=== PATIENT | female | born 1945 | race Caucasian/White ===

== ENCOUNTER 2016-10-14 10:12 | Emergency (ER) | payer MEDICARE, OTHER ==
--- NOTE | 2016-10-14 10:30 | EDM.PDOC ---
ED HISTORY OF PRESENT ILLNESS - General Chief Complaint: Cardiovascular Problem Stated Complaint: [facility] Time Seen by Provider: 10/14/16 10:24 Source of Information: Reports: Patient History Limitations: Reports: No limitations - History of Present Illness INITIAL COMMENTS - FREE TEXT/NARRATIVE: 71-year-old female arrives in the ED per [facility].she became alarmed this morning when her son checked her blood pressure and identified it to be quite low at home reportedly 79 systolic over 45. Paramedics were summoned and I suspect the blood pressure reading was fictitious. blood pressure is found to be one and 20/78. Blood pressure here is 164 on 87 with a heart rate of 91 per minute. O2 sats are 97% on room air. She has no pain or problems at this time. She reports that she's been told she's had [address] scan [place] but no documented deficits ever occurred. She's been insulin-dependent diabetic for greater than 10 years. Rarely using insulin by insulin pump. Sugars were okay on scene. She did eat breakfast this morning he had oatmeal. She did not take her normal medications due to the low blood pressure recording. I suspect this is fictitious however.she has not been ill with any genitourinary complaints cough or sputum production. Bowels tend to be constipated. No diarrhea. No nausea or vomiting. Denies any headache. She reports that she's getting weaker in fact can't walk anymore gets around only by way of wheelchair. Symptom Onset Date: 10/14/16 Symptom Onset Time: 08:30 Timing/Duration: Reports: Hour(s):, Other (reported blood sugar to be quite low at home and) Severity: moderate (with a systolic of 79.) Quality: Reports: Other (him no pain or discomfort.) Improves with: Reports: None Worsens with: Reports: None Context, General: Denies: Activity, Exercise, Lifting, Sick contact, Trauma, Other Associated Symptoms (General): Reports: weakness (particularly in her lower extremities. ). Denies: no other symptoms, confusion, chest pain, cough, cough w sputum, diaphoresis, fever/chills, headaches, loss of appetite, malaise, nausea/vomiting, rash, seizure, shortness of breath, syncope Treatments PRACTICAL NURSING FACULTY: Reports: Other (see below) (none) - Related Data Allergies/ADRs: Allergies Allergy/AdvReac Type Severity Reaction Status Date / Time No Known Allergies Allergy Verified 10/14/16 10:24 Home Meds: Home Meds Dex Low Dose 81 mg PO DAILY 10/14/16 [History] Calcium Carbonate [Calcium] 1 tab PO DAILY 10/14/16 [History] Cholecalciferol (Vitamin D3) [Vitamin D3] 1 tab PO DAILY 10/14/16 [History] Cyanocobalamin (Vitamin B12) [Vitamin B12] 1 tab PO DAILY 10/14/16 [History] Folic Acid 1 tab PO DAILY 10/14/16 [History] LORazepam [Ativan] 1 tab PO QID PRN 10/14/16 [History] Metoclopramide [Reglan] 1 tab PO QID 10/14/16 [History] Multivit-Min/FA/Lycopene/Lut [Centrum Silver Tablet] 1 tab PO DAILY 10/14/16 [ History] Sertraline [Zoloft] 1.5 tab PO DAILY 10/14/16 [History] Simvastatin [Zocor] 1 tab PO DAILY 10/14/16 [History] Sodium Bicarbonate 1 tab PO BID 10/14/16 [History] Past Medical History Other Genitourinary History: kidney issues pt states that they are only 40% functioning. Neurological History: Reports: CVA (told she has lacunar infarct x3 on CT. Currently she is disabled from ability to walk and get around only by way of wheelchair.). Denies: Speech problems Endocrine/Metabolic History: Reports: Diabetes, type II (has one on insulin for greater than 10 years. Currently being treated with insulin pump.) Other Endocrine/Metabolic History: started insulin pump 1 week ago and is not working well - Past Surgical History Other Cardiovascular Surgeries/Procedures: Pt states that she sometimes has high blood pressure but other times she is hypotensive so she takes BP meds PRN is how it is prescribed. Other GI Surgeries/Procedures: Hepatitis A in high school which has not happened again Social & Family History - Tobacco Use Smoking Status *Q: Never Smoker Second Hand Smoke Exposure: No - Recreational Drug Use Recreational Drug Use: No - Living Situation & Occupation Living situation: Reports: Occupation: retired ED ROS GENERAL - Review of Systems Review Of Systems: See Below Constitutional: Reports: weakness. Denies: fever, chills, malaise, fatigue, night sweats, diaphoresis, decreased appetite, weight loss HEENT: Reports: No symptoms Respiratory: Reports: No Symptoms Cardiovascular: Reports: Blood pressure problem. Denies: No symptoms Endocrine: Reports: fatigue GI/Abdominal: Reports: Constipation : Reports: frequency, incontinence (both urge and stress incontinence.) Musculoskeletal: Reports: back pain, joint pain Skin: Reports: no symptoms Neurological: Reports: No Symptoms Psychiatric: Reports: No symptoms Hematologic/Lymphatic: Reports: no symptoms Immunologic: Reports: no symptoms ED EXAM, GENERAL - Physical Exam Exam: See Below Exam Limited By: No limitations General Appearance: alert, WD/WN, no apparent distress Eye Exam: bilateral eye: normal inspection Ears: normal TMs Throat/Mouth: Normal inspection, Normal lips, Normal oropharynx Head: atraumatic, normocephalic Neck: normal inspection, supple, non-tender, full range of motion. No: lymphadenopathy (L), lymphadenopathy (R) Respiratory/Chest: no respiratory distress, lungs clear, normal breath sounds, no accessory muscle use Cardiovascular: normal peripheral pulses, regular rate, rhythm, no edema, no gallop, no murmur, no rub Peripheral Pulses: 1+: posterior tibial (L), posterior tibial (R), dorsalis pedis (L), dorsalis pedis (R) GI/Abdominal: normal bowel sounds, soft, non tender, no organomegaly, no distention Back Exam: normal inspection, full range of motion. No: CVA tenderness (L), CVA tenderness (R) Extremities: normal inspection, normal range of motion, non-tender, no pedal edema, normal capillary refill Neurological: alert, oriented, CN II-XII intact, normal cognition, normal gait, normal reflexes Psychiatric: normal affect, normal mood Skin Exam: Warm, Dry, Intact, Normal color, No rash EKG INTERPRETATION EKG Date: 10/14/16 Time: 10:45 Rhythm: NSR Rate (beats/min): 90 [place]: LAD-left axis deviation (-35) P-wave: enlarged (consider left atrial hypertrophy) QRS: other (left ventricular protect pattern) ST-T: normal QT: normal Course - Vital Signs Last Recorded V/S: Last Vital Signs Temp 36.9 C 10/14/16 10:19 Pulse 92 10/14/16 10:19 Resp 12 10/14/16 10:19 BP 161/70 H 10/14/16 10:19 Pulse Ox 99 10/14/16 10:19 - Orders/Labs/Meds Orders: Active Orders 24 hr Category Date Time Status Blood Glucose Check, Bedside [RC] ONETIME Care 10/14/16 10:38 Active EKG Documentation Completion [RC] STAT Care 10/14/16 10:38 Active Chest 1V Frontal [CR] Stat Exams 10/14/16 10:38 Taken URINALYSIS W/MICROSCOPIC [UA W/MICROSCOPIC] [URIN] Stat Lab 10/14/16 10:39 Uncollected Labs: Laboratory Tests 10/14/16 10/14/16 Range/Units 10:20 10:20 WBC 6.80 (3.98-10.04) K/mm3 RBC 4.30 (3.98-5.22) M/mm3 Hgb 13.0 (11.2-15.7) gm/L Hct 40.2 (34.1-44.9) % MCV 93.5 (79.4-94.8) fl MCH 30.2 (25.6-32.2) pg MCHC 32.3 (32.2-35.5) g/dl RDW Std Deviation 41.4 (36.4-46.3) fL Plt Count 164 L (182-369) K/mm3 MPV 11.2 (9.4-12.3) fl Neutrophils % (Manual) 70 H (40-60) % Band Neutrophils % 3 (0-10) % Lymphocytes % (Manual) 22 (20-40) % Atypical Lymphs % 0 % Monocytes % (Manual) 4 (2-10) % Eosinophils % (Manual) 1 (0.7-5.8) % Basophils % (Manual) 0 L (0.1-1.2) Platelet Estimate Adequate RBC Morph Comment Normal Sodium 140 (136-145) mEq/L Potassium 4.4 (3.5-5.1) mEq/L Chloride 103 (98-107) mEq/L Carbon Dioxide 29 (21-32) mEq/L Anion Gap 12.4 (5-15) BUN 48 H (7-18) mg/dL Creatinine 1.9 H (0.55-1.02) mg/dL Est Cr Clr Drug Dosing 21.79 mL/min Estimated GFR (MDRD) 26 (>60) mL/min BUN/Creatinine Ratio 25.3 H (14-18) Glucose 261 H (80-115) mg/dL Calcium 9.0 (8.5-10.1) mg/dL Magnesium 1.9 (1.8-2.4) mg/dl Total Bilirubin 0.6 (0.2-1.0) mg/dL AST 27 (15-37) U/L ALT 21 (14-59) U/L Alkaline Phosphatase 72 (46-116) U/L Troponin I < 0.017 (0.00-0.056) ng/mL C-Reactive Protein < 0.2 (<1.0) mg/dL Total Protein 7.2 (6.4-8.2) g/dl Albumin 3.6 (3.4-5.0) g/dl Globulin 3.6 gm/dL Albumin/Globulin Ratio 1.0 (1-2) - Radiology Interpretation Free Text/Narrative:: 71-year-old female presents to the ED per [facility].chief complaint was appreciable hypotension measured by her son at home this morning BP was reported to be sclerosis 79 systolic. Whether this was fictitious or not is suspect. Paramedics arrived and found blood pressure be 128 in the 78 range. In the ED today it's 164/82. She is in sinus rhythm in the nose respiratory distress. Examination is otherwise completely normal. Plan routine labs will be performed including an EKG and one view chest x-ray.blood pressures usually controlled with the Toprol 12.5 mg twice a day. - Re-Assessments/Exams Free Text/Narrative Re-Assessment/Exam: 10/14/16 11:07ECG shows sinus at 90 per minute. There is evidence of left ventricular hypertrophy pattern. Borderline criteria for left atrial hypertrophy. No signs of ischemia. Chest x-ray reveals mildly hyperinflated lung rod. Cardiac silhouette is normal. Visualized portions lung rod appear clear. 10/14/16 11:21chemistry shows a white count of 6.80 with 70% neutrophils and 3% band cells. Hemoglobin is 13.0 hematocrit is 40.2 platelets are 64,000 chemistry shows a sodium of 140 potassium 4.4 chloride 103 carb 29. BUN is mildly elevated at 48 creatinine is elevated at 1.9. EGFR is 26 indicating grade 4 chronic kidney disease. Glucose is 261. Her pressure remained satisfactory one 4777. Heart rate is 86 and sinus.therefore really nothing has changed. I think this blood pressure recording as part of this dictation as. Per son is now here and advised if it happens again to check his own blood pressure dates the machine as it may be the machine not functioning properly. Medications will be continued as previously prescribed. Departure - Departure Time of Disposition: 11:26 Disposition: Home, Self-Care 01 Condition: fair Clinical Impression: Essential hypertension, Insulin dependent diabetes mellitus, Chronic renal insufficiency, stage IV (severe) Forms: ED Department Discharge Additional Instructions: evaluation in the emergency room today in regards to reported low blood sugar identified at home this morning. Blood pressure by paramedics assessment was in the 120/78 range and once you're in the ED it was higher at 164/84. It subsequently come down to close to normal at 147/77. Lab work was done as a precautionary measure to make sure no thing was abnormal and the lab work turned out to be normal other than renal function which he knew was not the best because of diabetes. Blood sugar in the ED was 260 today. No sign of further strokelike illness. Therefore at this time I would not suggest any changes in your medications. Continue medications as previously prescribed. Followup with her personal doctor as planned. - My Orders Last 24 Hours: My Active Orders 10/14/16 10:38 Blood Glucose Check, Bedside [RC] ONETIME EKG Documentation Completion [RC] STAT Chest 1V Frontal [CR] Stat 10/14/16 10:39 URINALYSIS W/MICROSCOPIC [UA W/MICROSCOPIC] [URIN] Stat - Assessment/Plan Last 24 Hours: My Active Orders 10/14/16 10:38 Blood Glucose Check, Bedside [RC] ONETIME EKG Documentation Completion [RC] STAT Chest 1V Frontal [CR] Stat 10/14/16 10:39 URINALYSIS W/MICROSCOPIC [UA W/MICROSCOPIC] [URIN] Stat
--- NOTE | 2016-10-14 15:14 | CR ---
Chest: Portable view of the chest was obtained. Comparison: No previous study. Heart size and mediastinum are within normal limits for portable technique. Lungs are clear with no acute infiltrates. Bony structures are osteopenic. Mild deformity compatible with old healed fracture is seen within the proximal humerus. Impression: 1. Incidental findings. Nothing acute is identified on portable chest x-ray. Diagnostic code #2
[2016-10-14 20:29] VITALS: BP 163/78
== END 2016-10-14 11:40 | disposition home or self-care (01) ==
LOC: JD.ED 10:12
DX: I10 Essential (primary) hypertension (principal); I12.9 Hypertensive chronic kidney disease with stage 1 through stage 4 chronic kidney disease, or unspecified chronic kidney disease; N18.4 Chronic kidney disease, stage 4 (severe); Z79.4 Long term (current) use of insulin; Z79.899 Other long term (current) drug therapy
CPT/HCPCS: 36415; 71010; 71010-26; 80053; 82962; 83735; 84484; 85025; 86140; 93005; 99284; 99285-25

== ENCOUNTER 2016-10-26 17:08 | Emergency (ER) | payer MEDICARE, OTHER ==
[2016-10-26] MEDS ORDERED: Sodium Chloride 0.9% 10 ML Syringe FLUSH PRN (18:25)
--- NOTE | 2016-10-26 21:48 | EDM.PDOC ---
ED HPI DIABETIC EMERGENCY - General Chief Complaint: Diabetic Complaint Stated Complaint: [facility] Time Seen by Provider: 10/26/16 17:33 Source of Information: Reports: Patient, EMS, RN notes reviewed - History of Present Illness INITIAL COMMENTS - FREE TEXT/NARRATIVE: 71 year old female has been brought in by [facility] with concerns of her insulin pump not working properly. Patient is not able to give a real clear hx but it seems that she was trying to reload it with insulin, lost a cover, unable to get it back together and get it programed to work properly. She has given herself dose of 10 units sq this late afternoon prior to calling the ambulance. No fever or chills. No chest pain or difficulty breathing. glucose 133 en route. Most Recent Blood Sugar: 236 - Related Data Allergies/ADRs: Allergies Allergy/AdvReac Type Severity Reaction Status Date / Time No Known Allergies Allergy Verified 10/26/16 17:16 Home Meds: Home Meds Dex Low Dose 81 mg PO DAILY 10/14/16 [History] Calcium Carbonate [Calcium] 1 tab PO DAILY 10/14/16 [History] Cholecalciferol (Vitamin D3) [Vitamin D3] 1 tab PO DAILY 10/14/16 [History] Cyanocobalamin (Vitamin B12) [Vitamin B12] 1 tab PO DAILY 10/14/16 [History] Folic Acid 1 tab PO DAILY 10/14/16 [History] LORazepam [Ativan] 1 tab PO QID PRN 10/14/16 [History] Metoclopramide [Reglan] 1 tab PO TID 10/14/16 [History] Multivit-Min/FA/Lycopene/Lut [Centrum Silver Tablet] 1 tab PO DAILY 10/14/16 [ History] Sertraline [Zoloft] 1.5 tab PO DAILY 10/14/16 [History] Simvastatin [Zocor] 1 tab PO DAILY 10/14/16 [History] Sodium Bicarbonate 1 tab PO BID 10/14/16 [History] Past Medical History HEENT History: Reports: Impaired vision Other HEENT History: Glasses Respiratory History: Reports: Croup Other Respiratory History: Patient states she had croup a lot as a kid Gastrointestinal History: Reports: Other (see below) Other Gastrointestinal History: "slow stomach with chronic n/v" Genitourinary History: Reports: Other (see below) Other Genitourinary History: kidney issues pt states that they are only 40% functioning. Musculoskeletal History: Reports: Osteoporosis Neurological History: Reports: CVA Psychiatric History: Reports: Anxiety Endocrine/Metabolic History: Reports: Diabetes, type II Other Endocrine/Metabolic History: started insulin pump 1 week ago and is not working well - Infectious Disease History Infectious Disease History: Reports: Chicken pox, Measles - Past Surgical History Other Cardiovascular Surgeries/Procedures: Pt states that she sometimes has high blood pressure but other times she is hypotensive so she takes BP meds PRN is how it is prescribed. Other GI Surgeries/Procedures: Hepatitis A in high school which has not happened again Social & Family History - Tobacco Use Smoking Status *Q: Never Smoker Second Hand Smoke Exposure: No - Caffeine Use Caffeine Use: Reports: None - Recreational Drug Use Recreational Drug Use: No - Living Situation & Occupation Living situation: Reports: Occupation: retired ED ROS GENERAL - Review of Systems Review Of Systems: See Below Constitutional: Denies: fever, chills, diaphoresis HEENT: Denies: Sinus problem, Throat pain Respiratory: Denies: Shortness of Breath Cardiovascular: Denies: Chest pain GI/Abdominal: Reports: Nausea. Denies: Abdominal pain, Diarrhea, Vomiting Musculoskeletal: Denies: neck pain, shoulder pain Skin: Reports: no symptoms Neurological: Denies: Weakness, Change in Speech ED EXAM GENERAL NO PERIP PULSE - Physical Exam Exam: See Below General Appearance: alert, anxious, other (patient is mildly confused) Eye Exam: bilateral eye: PERRL Nose: normal inspection Throat/Mouth: Normal inspection Head: atraumatic. No: facial swelling Neck: supple, full range of motion. No: lymphadenopathy (L), lymphadenopathy (R ) Respiratory/Chest: no respiratory distress, lungs clear, normal breath sounds Cardiovascular: regular rate, rhythm GI/Abdominal: soft, non tender. No: guarding Extremities: normal inspection. No: pedal edema, leg pain Neurological: alert, no motor/sensory deficits Skin Exam: Warm, Dry, Normal color Course - Vital Signs Last Recorded V/S: Last Vital Signs Temp 97.4 F 10/26/16 22:22 Pulse 103 H 10/26/16 22:22 Resp 18 10/26/16 22:22 BP 160/57 H 10/26/16 22:22 Pulse Ox 98 10/26/16 22:22 - Orders/Labs/Meds Labs: Laboratory Tests 10/26/16 10/26/16 10/26/16 Range/Units 17:25 17:59 17:59 WBC 8.22 (3.98-10.04) K/mm3 RBC 3.91 L (3.98-5.22) M/mm3 Hgb 11.8 (11.2-15.7) gm/L Hct 35.5 (34.1-44.9) % MCV 90.8 (79.4-94.8) fl MCH 30.2 (25.6-32.2) pg MCHC 33.2 (32.2-35.5) g/dl RDW Std Deviation 39.8 (36.4-46.3) fL Plt Count 164 L (182-369) K/mm3 MPV 10.8 (9.4-12.3) fl Neut % (Auto) 70.4 (34.0-71.1) % Lymph % (Auto) 16.3 L (19.3-51.7) % [place] % (Auto) 11.3 (4.7-12.5) % Eos % (Auto) 1.6 (0.7-5.8) Baso % (Auto) 0.2 (0.1-1.2) % Neut # (Auto) 5.78 (1.56-6.13) K/mm3 Lymph # (Auto) 1.34 (1.18-3.74) K/mm3 [place] # (Auto) 0.93 H (0.24-0.36) K/mm3 Eos # (Auto) 0.13 (0.04-0.36) K/mm3 Baso # (Auto) 0.02 (0.01-0.08) K/mm3 Sodium 141 (136-145) mEq/L Potassium 3.9 (3.5-5.1) mEq/L Chloride 104 (98-107) mEq/L Carbon Dioxide 30 (21-32) mEq/L Anion Gap 10.9 (5-15) BUN 42 H (7-18) mg/dL Creatinine 1.7 H (0.55-1.02) mg/dL Est Cr Clr Drug Dosing 24.35 mL/min Estimated GFR (MDRD) 30 (>60) mL/min BUN/Creatinine Ratio 24.7 H (14-18) Glucose 104 (80-115) mg/dL POC Glucose 72 L (80-115) mg/dL Calcium 9.2 (8.5-10.1) mg/dL Total Bilirubin 0.6 (0.2-1.0) mg/dL AST 20 (15-37) U/L ALT 20 (14-59) U/L Alkaline Phosphatase 75 (46-116) U/L Total Protein 6.8 (6.4-8.2) g/dl Albumin 3.6 (3.4-5.0) g/dl Globulin 3.2 gm/dL Albumin/Globulin Ratio 1.1 (1-2) 10/26/16 10/26/16 Range/Units 19:06 20:35 WBC (3.98-10.04) K/mm3 RBC (3.98-5.22) M/mm3 Hgb (11.2-15.7) gm/L Hct (34.1-44.9) % MCV (79.4-94.8) fl MCH (25.6-32.2) pg MCHC (32.2-35.5) g/dl RDW Std Deviation (36.4-46.3) fL Plt Count (182-369) K/mm3 MPV (9.4-12.3) fl Neut % (Auto) (34.0-71.1) % Lymph % (Auto) (19.3-51.7) % [place] % (Auto) (4.7-12.5) % Eos % (Auto) (0.7-5.8) Baso % (Auto) (0.1-1.2) % Neut # (Auto) (1.56-6.13) K/mm3 Lymph # (Auto) (1.18-3.74) K/mm3 [place] # (Auto) (0.24-0.36) K/mm3 Eos # (Auto) (0.04-0.36) K/mm3 Baso # (Auto) (0.01-0.08) K/mm3 Sodium (136-145) mEq/L Potassium (3.5-5.1) mEq/L Chloride (98-107) mEq/L Carbon Dioxide (21-32) mEq/L Anion Gap (5-15) BUN (7-18) mg/dL Creatinine (0.55-1.02) mg/dL Est Cr Clr Drug Dosing mL/min Estimated GFR (MDRD) (>60) mL/min BUN/Creatinine Ratio (14-18) Glucose (80-115) mg/dL POC Glucose 134 H 223 H (80-115) mg/dL Calcium (8.5-10.1) mg/dL Total Bilirubin (0.2-1.0) mg/dL AST (15-37) U/L ALT (14-59) U/L Alkaline Phosphatase (46-116) U/L Total Protein (6.4-8.2) g/dl Albumin (3.4-5.0) g/dl Globulin gm/dL Albumin/Globulin Ratio (1-2) Meds: Medications Discontinued Medications Generic Name Dose Route Start Last Admin Trade Name Freq PRN Reason Stop Dose Admin Sodium Chloride 10 ml 10/26/16 18:25 10/26/16 18:15 Saline Flush FLUSH 10 ml ASDIRECTED PRN Administration Keep Vein Open - Re-Assessments/Exams Free Text/Narrative Re-Assessment/Exam: 10/26/16 20:33. initial glucose on arrival in the 70's, had been 133 en route. We did have her drink some orange juice and glucose levels have risen as documented. CMP was OK. She continues to show confusion as to how to manage her pump. We have been able to call Enedina Riverafaiza in who is getting that set up for her. Her will come get her and bring her home. Enedina is concerned about her ability to continue to manage her pump. She has had episodes of confusion in the past, has apparent hx of TIA's. Enedina states her son and have not shown reliability to help manage her pump. The pump will be fine now for 3 days. We will have her follow up at the clinic tomorrow, have them be aware of her situation. Enedina will call clinic in AM, see if they can help set up home health, respit care or some type of service to help her with insulin pump, dibetes management and other health care needs as needed. Departure - Departure Time of Disposition: 21:55 Disposition: Home, Self-Care 01 Condition: fair Clinical Impression: Diabetes Qualifiers: Diabetes mellitus type: type 1 Diabetes mellitus complication status: with unspecified complications Qualified Code(s): E10.8 - Type 1 diabetes mellitus with unspecified complications Instructions: Insulin Pumps Referrals: Dionna Willson [facility] [Primary Care Provider] - Forms: ED Department Discharge Additional Instructions: your pump has enough insulin for 3 days. Enedina and Porsche recomend follow up at clinic tomorrow for recheck, call for appt. Have the clinic staff help see if you qualify for home health or other home assistance as needed to help you manage your diabetes and insulin pump at home. Continue to follow up at the clinic as needed, return to ED as needed.
[2016-10-26 22:35] VITALS: BP 160/57
== END 2016-10-26 22:00 | disposition home or self-care (01) ==
LOC: JD.ED 17:08 → SUPCPDRO 17:08 → JD.ED 22:00
DX: E10.8 Type 1 diabetes mellitus with unspecified complications (principal); M81.0 Age-related osteoporosis without current pathological fracture; F41.9 Anxiety disorder, unspecified; Z79.899 Other long term (current) drug therapy
CPT/HCPCS: 36415; 80053; 82962; 85025; 99285; J7050; 99283

== ENCOUNTER 2017-03-14 19:26 | Inpatient (IN) | payer MEDICARE, OTHER ==
[2017-03-14] MEDS ORDERED: Ondansetron 4 MG Tab.DIS PO ONE (20:13)
[2017-03-14] MEDS ORDERED: Sodium Chloride 0.9% 1,000 ML IV SCH (20:30)
[2017-03-14] MEDS ORDERED: Ondansetron 4 MG/2 ML SDV IVPUSH ONE (21:47)
--- NOTE | 2017-03-14 23:06 | EDM.PDOC ---
ED HPI GENERAL MEDICAL PROBLEM - General Chief Complaint: Diabetic Complaint Stated Complaint: [facility] Time Seen by Provider: 03/14/17 19:29 Source of Information: Reports: Patient, Family History Limitations: Reports: No Limitations - History of Present Illness INITIAL COMMENTS - FREE TEXT/NARRATIVE: This is a 72-year-old female. She comes tonight because her blood sugars been elevated over the last 24 hours. Apparently she used to have an insulin pump that she used however in the next couple of weeks she is going to be admitted to a detention and they do not want her to have an insulin pump. Therefore she has stopped the insulin pump and is using IM insulin injections in the morning and during meals. They started out with 15 units of Lantus at 8 AM in the morning and then 3 units of Humalog with every meal. The register which she has has shown that normally in the early mornings her blood sugars are beginning to rise in the 200s and 300s. Around noon or so the blood sugar has been in the 100s. He has been feeling a little nauseated and a little thirsty lately and she has been able to keep down her fluids. Apparently her blood sugar was 490 according to the patient but looking at her register it was only 368. She denies any cough congestion any fever or chills no diarrhea and no vomiting. Abdomen Pain Score (Numeric/FACES): 8 - Related Data Allergies Allergy/AdvReac Type Severity Reaction Status Date / Time No Known Allergies Allergy Verified 10/26/16 17:16 Home Meds: Home Meds Dex Low Dose 81 mg PO DAILY 10/14/16 [History] Calcium Carbonate [Calcium] 600 mg PO DAILY 10/14/16 [History] Cholecalciferol (Vitamin D3) [Vitamin D3] 2,000 unit PO DAILY 10/14/16 [History] Cyanocobalamin (Vitamin B12) [Vitamin B12] 1 tab PO DAILY 10/14/16 [History] Folic Acid 1 tab PO DAILY 10/14/16 [History] LORazepam [Ativan] 0.25 mg PO QID PRN 10/14/16 [History] Metoclopramide [Reglan] 10 mg PO QID 10/14/16 [History] Multivit-Min/FA/Lycopene/Lut [Centrum Silver Tablet] 1 tab PO DAILY 10/14/16 [ History] Sertraline [Zoloft] 150 mg PO DAILY 10/14/16 [History] Sodium Bicarbonate 325 mg PO BID 10/14/16 [History] Omeprazole Magnesium [Prilosec Otc] 20 mg PO DAILY 03/14/17 [History] Ondansetron HCl [Zofran] 4 - 8 mg PO TID PRN 03/14/17 [History] Pramipexole [Mirapex] 0.5 mg PO DAILY 03/14/17 [History] atorvaSTATin [Lipitor] 40 mg PO DAILY 03/14/17 [History] Past Medical History HEENT History: Reports: Impaired Vision Other HEENT History: Glasses Respiratory History: Reports: Croup Other Respiratory History: Patient states she had croup a lot as a kid Gastrointestinal History: Reports: Other (See Below) Other Gastrointestinal History: "slow stomach with chronic n/v" Genitourinary History: Reports: Other (See Below) Other Genitourinary History: kidney issues pt states that they are only 40% functioning. Musculoskeletal History: Reports: Osteoporosis Neurological History: Reports: CVA Psychiatric History: Reports: Anxiety Endocrine/Metabolic History: Reports: Diabetes, Type II Other Endocrine/Metabolic History: started insulin pump 1 week ago and is not working well - Infectious Disease History Infectious Disease History: Reports: Chicken Pox, Measles - Past Surgical History Cardiovascular Surgical History: Reports: Other (See Below) Social & Family History - Tobacco Use Smoking Status *Q: Never Smoker Second Hand Smoke Exposure: No - Caffeine Use Caffeine Use: Reports: Coffee, Soda, Tea - Recreational Drug Use Recreational Drug Use: No - Living Situation & Occupation Living situation: Reports: Occupation: Retired ED ROS GENERAL - Review of Systems Review Of Systems: See Below Constitutional: Reports: Malaise, Weakness. Denies: Fever, Chills HEENT: Reports: No Symptoms Respiratory: Reports: No Symptoms Cardiovascular: Reports: No Symptoms Endocrine: Reports: High Glucose GI/Abdominal: Reports: Nausea. Denies: Abdominal Pain, Diarrhea, Vomiting : Reports: No Symptoms Musculoskeletal: Reports: No Symptoms Skin: Reports: No Symptoms Neurological: Reports: Weakness Psychiatric: Reports: No Symptoms Hematologic/Lymphatic: Reports: No Symptoms ED EXAM GENERAL NO PERIP PULSE - Physical Exam Exam: See Below Exam Limited By: No Limitations General Appearance: Alert, WD/WN, No Apparent Distress Eye Exam: Bilateral Eye: Normal Inspection Ears: Normal External Exam, Normal Canal, Normal TMs Nose: Normal Inspection Throat/Mouth: Normal Inspection, Normal Lips, Normal Voice, No Airway Compromise Head: Normocephalic Neck: Supple Respiratory/Chest: No Respiratory Distress, Lungs Clear, Normal Breath Sounds Cardiovascular: Regular Rate, Rhythm, No Murmur GI/Abdominal: Soft, Non-Tender Back Exam: Decreased Range of Motion Extremities: Normal Range of Motion Neurological: Alert, Oriented Psychiatric: Normal Affect, Normal Mood Skin Exam: Warm, Dry Course - Vital Signs Last Recorded V/S: Last Vital Signs Temp 97.2 F 03/14/17 19:35 Pulse 106 H 03/14/17 19:35 Resp 20 03/14/17 19:35 BP 158/64 H 03/14/17 19:35 Pulse Ox 93 L 03/14/17 19:35 - Orders/Labs/Meds Orders: Active Orders 24 hr Category Date Time Status Blood Glucose Check, Bedside [RC] ONETIME Care 03/14/17 19:59 Active Chest 2V [CR] Stat Exams 03/14/17 23:08 Ordered CULTURE URINE [RM] Stat Lab 03/14/17 23:09 Uncollected LACTIC ACID [CHEM] Stat Lab 03/14/17 23:17 Ordered Sodium Chloride 0.9% [Normal Saline] 1,000 ml Med 03/14/17 20:30 Active IV ASDIRECTED Medication Orders Sodium Chloride (Normal Saline) 1,000 mls @ 250 mls/hr IV ASDIRECTED ADEEL Last Admin: 03/14/17 20:31 Dose: 250 mls/hr Labs: Laboratory Tests 03/14/17 03/14/17 03/14/17 Range/Units 20:01 20:08 20:37 WBC 18.56 H (3.98-10.04) K/mm3 RBC 3.54 L (3.98-5.22) M/mm3 Hgb 11.1 L (11.2-15.7) gm/L Hct 34.0 L (34.1-44.9) % MCV 96.0 H (79.4-94.8) fl MCH 31.4 (25.6-32.2) pg MCHC 32.6 (32.2-35.5) g/dl RDW Std Deviation 42.7 (36.4-46.3) fL Plt Count 179 L (182-369) K/mm3 MPV 11.7 (9.4-12.3) fl Neut % (Auto) 87.2 H (34.0-71.1) % Lymph % (Auto) 4.6 L (19.3-51.7) % [place] % (Auto) 7.9 (4.7-12.5) % Eos % (Auto) 0 L (0.7-5.8) Baso % (Auto) 0.1 (0.1-1.2) % Neut # (Auto) 16.20 H (1.56-6.13) K/mm3 Lymph # (Auto) 0.85 L (1.18-3.74) K/mm3 [place] # (Auto) 1.46 H (0.24-0.36) K/mm3 Eos # (Auto) 0.00 L (0.04-0.36) K/mm3 Baso # (Auto) 0.02 (0.01-0.08) K/mm3 Manual Slide Review Normal smear Sodium (136-145) mEq/L Potassium (3.5-5.1) mEq/L Chloride (98-107) mEq/L Carbon Dioxide (21-32) mEq/L Anion Gap (5-15) BUN (7-18) mg/dL Creatinine (0.55-1.02) mg/dL Est Cr Clr Drug Dosing mL/min Estimated GFR (MDRD) (>60) mL/min BUN/Creatinine Ratio (14-18) Glucose (83-115) mg/dL POC Glucose 257 H (83-110) mg/dL Calcium (8.5-10.1) mg/dL Total Bilirubin (0.2-1.0) mg/dL AST (15-37) U/L ALT (14-59) U/L Alkaline Phosphatase (46-116) U/L Total Protein (6.4-8.2) g/dl Albumin (3.4-5.0) g/dl Globulin gm/dL Albumin/Globulin Ratio (1-2) Urine Color Yellow (Yellow) Urine Appearance Slt cloudy H (Clear) Urine pH 5.5 (5.0-8.0) Ur Specific [place] 1.020 (1.005-1.030) Urine Protein 1+ H (Negative) Urine Glucose (UA) 2+ H (Negative) Urine Ketones 1+ H (Negative) Urine Occult Blood Trace-lysed H (Negative) Urine Nitrite Negative (Negative) Urine Bilirubin 1+ H (Negative) Urine Urobilinogen 0.2 (0.2-1.0) Ur Leukocyte Esterase 1+ H (Negative) Urine RBC 5-10 H (0-5) /hpf Urine WBC 20-30 H (0-5) /hpf Ur Epithelial Cells 5-10 H (0-5) /hpf Urine Bacteria Moderate H (FEW) /hpf Urine Mucus Few (FEW) /hpf 03/14/17 03/14/17 Range/Units 20:37 21:45 WBC (3.98-10.04) K/mm3 RBC (3.98-5.22) M/mm3 Hgb (11.2-15.7) gm/L Hct (34.1-44.9) % MCV (79.4-94.8) fl MCH (25.6-32.2) pg MCHC (32.2-35.5) g/dl RDW Std Deviation (36.4-46.3) fL Plt Count (182-369) K/mm3 MPV (9.4-12.3) fl Neut % (Auto) (34.0-71.1) % Lymph % (Auto) (19.3-51.7) % [place] % (Auto) (4.7-12.5) % Eos % (Auto) (0.7-5.8) Baso % (Auto) (0.1-1.2) % Neut # (Auto) (1.56-6.13) K/mm3 Lymph # (Auto) (1.18-3.74) K/mm3 [place] # (Auto) (0.24-0.36) K/mm3 Eos # (Auto) (0.04-0.36) K/mm3 Baso # (Auto) (0.01-0.08) K/mm3 Manual Slide Review Sodium 143 (136-145) mEq/L Potassium 4.0 (3.5-5.1) mEq/L Chloride 102 (98-107) mEq/L Carbon Dioxide 29 (21-32) mEq/L Anion Gap 16.0 H (5-15) BUN 54 H (7-18) mg/dL Creatinine 2.3 H (0.55-1.02) mg/dL Est Cr Clr Drug Dosing 17.74 mL/min Estimated GFR (MDRD) 21 (>60) mL/min BUN/Creatinine Ratio 23.5 H (14-18) Glucose 300 H (83-115) mg/dL POC Glucose 262 H (83-110) mg/dL Calcium 9.8 (8.5-10.1) mg/dL Total Bilirubin 0.7 (0.2-1.0) mg/dL AST 28 (15-37) U/L ALT 30 (14-59) U/L Alkaline Phosphatase 77 (46-116) U/L Total Protein 6.9 (6.4-8.2) g/dl Albumin 3.7 (3.4-5.0) g/dl Globulin 3.2 gm/dL Albumin/Globulin Ratio 1.2 (1-2) Urine Color (Yellow) Urine Appearance (Clear) Urine pH (5.0-8.0) Ur Specific [place] (1.005-1.030) Urine Protein (Negative) Urine Glucose (UA) (Negative) Urine Ketones (Negative) Urine Occult Blood (Negative) Urine Nitrite (Negative) Urine Bilirubin (Negative) Urine Urobilinogen (0.2-1.0) Ur Leukocyte Esterase (Negative) Urine RBC (0-5) /hpf Urine WBC (0-5) /hpf Ur Epithelial Cells (0-5) /hpf Urine Bacteria (FEW) /hpf Urine Mucus (FEW) /hpf Meds: Medications Generic Name Dose Route Start Last Admin Trade Name Freq PRN Reason Stop Dose Admin Sodium Chloride 1,000 mls @ 250 mls/hr 03/14/17 20:30 03/14/17 20:31 Normal Saline IV 250 mls/hr ASDIRECTED ADEEL Administration Discontinued Medications Generic Name Dose Route Start Last Admin Trade Name Freq PRN Reason Stop Dose Admin Ondansetron HCl 4 mg 03/14/17 20:13 03/14/17 20:17 Zofran Odt PO 03/14/17 20:14 4 mg ONETIME ONE Administration Ondansetron HCl 4 mg 03/14/17 21:47 03/14/17 22:06 Zofran IVPUSH 03/14/17 21:48 4 mg ONETIME ONE Administration - Radiology Interpretation Free Text/Narrative:: Chest x-ray did not show any acute infiltrates - Re-Assessments/Exams Free Text/Narrative Re-Assessment/Exam: 03/14/17 23:34 Spoke to the family that arrived regarding the patient's status. She appears to have a urinary tract infection and we did a urine culture and she has a white count of 18.5 noted. She has persistent nausea but she has a gastroparesis she is also got renal insufficiency that is chronic and her blood sugars are more elevated than normal. I did speak to Dr. Rodriguez regarding this and we'll put her in the hospital for adjustment of her insulin needs as well as treating her UTI. Departure - Departure Time of Disposition: 23:36 Disposition: Admitted As Inpatient 67 Condition: Fair Clinical Impression: Nausea, Gastroparesis, Insulin dependent diabetes mellitus, Hyperglycemia Urinary tract infection Qualifiers: Urinary tract infection type: acute cystitis Hematuria presence: without hematuria Qualified Code(s): N30.00 - Acute cystitis without hematuria Leukocytosis Qualifiers: Leukocytosis type: other Qualified Code(s): D72.828 - Other elevated white blood cell count Chronic renal insufficiency Qualifiers: Chronic kidney disease stage: unspecified stage Qualified Code(s): N18.9 - Chronic kidney disease, unspecified - Discharge Information Additional Instructions: Dr. Rodriguez accepts the patient for admission for further evaluation and treatment ED Communication - ED Communication Date/Time Date: 03/14/17 Time Called: 23:38 - Discussed Case With (1) Discussed Case With (1): Admitting Provider Person/s Notified (1): Lisa Rodriguez (Will admit the patient) - My Orders Last 24 Hours: My Active Orders 03/14/17 19:59 Blood Glucose Check, Bedside [RC] ONETIME 03/14/17 20:30 Sodium Chloride 0.9% [Normal Saline] 1,000 ml IV ASDIRECTED 03/14/17 23:08 Chest 2V [CR] Stat 03/14/17 23:09 CULTURE URINE [RM] Stat 03/14/17 23:17 LACTIC ACID [CHEM] Stat - Assessment/Plan Last 24 Hours: My Active Orders 03/14/17 19:59 Blood Glucose Check, Bedside [RC] ONETIME 03/14/17 20:30 Sodium Chloride 0.9% [Normal Saline] 1,000 ml IV ASDIRECTED 03/14/17 23:08 Chest 2V [CR] Stat 03/14/17 23:09 CULTURE URINE [RM] Stat 03/14/17 23:17 LACTIC ACID [CHEM] Stat
[2017-03-14] MEDS ORDERED: cefTRIAXone 1 GM in Sodium Chloride 0.9% 100 ML IV ONE (23:35)
[2017-03-15] MEDS ORDERED: Sodium Chloride 0.9% 1,000 ML IV SCH (00:45)
[2017-03-15] MEDS ORDERED: Ondansetron 4 MG/2 ML SDV IVPUSH PRN (08:42)
--- NOTE | 2017-03-15 09:48 | PCM.HP ---
H&P History of Present Illness - General Date of Service: 03/15/17 Admit Problem/Dx: Admission Diagnosis/Problem Admission Diagnosis/Problem Urinary tract infection Source of Information: Patient, Provider History Limitations: Reports: No Limitations - History of Present Illness Initial Comments - Free Text/Narative: 72 year old female with DM type II formerly on a insulin pump, presents with malaise, weakness. Her BS were greater than 300. She has had increased thirst. Additionally nausea as well as vomiting. Denies fever or chills. After admission to [facility] telemetry has also complained of abdominal pain. Reports frequent episodes of vomiting, the nursing staff witnessed coffee ground emesis this am. She denies a change in habits but by lab work, has a UTI. Rocephin was given in the ED. She has been admitted for symptomatic hyperglycemia and a UTI. Onset of Symptoms: Reports: Unknown/Unsure Duration of Symptoms: Reports: Day(s):, Getting Worse Location: Reports: Abdomen, Generalized Severity: Moderate Improves with: Reports: Medication Worsens with: Reports: None Associated Symptoms: Reports: Malaise, Nausea/Vomiting Abdomen Pain Score (Numeric/FACES): 8 - Related Data Allergies/Adverse Reactions: Allergies Allergy/AdvReac Type Severity Reaction Status Date / Time No Known Allergies Allergy Verified 10/26/16 17:16 Home Medications: Home Meds Calcium Carbonate [Calcium] 600 mg PO DAILY 10/14/16 [History] Cholecalciferol (Vitamin D3) [Vitamin D3] 2,000 unit PO DAILY 10/14/16 [History] Cyanocobalamin (Vitamin B12) [Vitamin B12] 1 tab PO DAILY 10/14/16 [History] Folic Acid 1 mg PO DAILY 10/14/16 [History] LORazepam [Ativan] 0.25 mg PO QID PRN 10/14/16 [History] Metoclopramide [Reglan] 10 mg PO BTHMEALBED 10/14/16 [History] Multivit-Min/FA/Lycopene/Lut [Centrum Silver Tablet] 1 tab PO DAILY 10/14/16 [ History] Sertraline [Zoloft] 150 mg PO DAILY 10/14/16 [History] Sodium Bicarbonate 325 mg PO BID 10/14/16 [History] Insulin Glarg,Human.Rec.Analog [LantUS] 15 unit SUBCUT ACBREAKFAST 03/14/17 [ History] Insulin Lispro [Humalog] 3 units SQ TIDMEALS 03/14/17 [History] Omeprazole Magnesium [Prilosec Otc] 20 mg PO DAILY 03/14/17 [History] Ondansetron HCl [Zofran] 4 - 8 mg PO TID PRN 03/14/17 [History] Pramipexole [Mirapex] 0.5 - 1 mg PO DAILY 03/14/17 [History] atorvaSTATin [Lipitor] 40 mg PO DAILY 03/14/17 [History] Aspirin [Ecotrin] 325 mg PO DAILY 03/15/17 [History] Past Medical History HEENT History: Reports: Impaired Vision Other HEENT History: Glasses Cardiovascular History: Reports: Hypertension, [place] Other Cardiovascular History: pb is elevated at times Respiratory History: Reports: Croup Other Respiratory History: Patient states she had croup a lot as a kid Gastrointestinal History: Reports: Chronic Diarrhea, Other (See Below) Other Gastrointestinal History: "slow stomach with chronic n/v" Genitourinary History: Reports: Chronic Renal Insuffiency, Renal Disease, Other (See Below) Other Genitourinary History: kidney issues pt states that they are only 40% functioning. 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: Musculoskeletal History: Reports: Osteoporosis Neurological History: Reports: CVA Psychiatric History: Reports: Anxiety Endocrine/Metabolic History: Reports: Diabetes, Type II Other Endocrine/Metabolic History: started insulin pump 1 week ago and is not working well has had hypo and hyper glycemia in past - Infectious Disease History Infectious Disease History: Reports: Chicken Pox, Measles - Past Surgical History Respiratory Surgical History: Reports: None Female Surgical History: Reports: None Social & Family History - Family History Family Medical History: Noncontributory - Tobacco Use Smoking Status *Q: Never Smoker Second Hand Smoke Exposure: No - Caffeine Use Caffeine Use: Reports: None - Recreational Drug Use Recreational Drug Use: No - Living Situation & Occupation Living situation: Reports: Occupation: Retired H&P Review of Systems - Review of Systems: Review Of Systems: See Below General: Reports: Malaise, Weakness HEENT: Reports: Sore Throat Pulmonary: Reports: No Symptoms Cardiovascular: Reports: No Symptoms Gastrointestinal: Reports: Abdominal Pain, Nausea, Vomiting Genitourinary: Reports: No Symptoms Musculoskeletal: Reports: No Symptoms Skin: Reports: No Symptoms Psychiatric: Reports: No Symptoms Neurological: Reports: No Symptoms Hematologic/Lymphatic: Reports: No Symptoms Immunologic: Reports: No Symptoms Exam - Exam Exam: See Below - Vital Signs Vital Signs: Last Vital Signs Temp 37.0 C 03/15/17 09:00 Pulse 106 H 03/15/17 09:00 Resp 14 03/15/17 09:00 BP 170/95 H 03/15/17 09:00 Pulse Ox 94 L 03/15/17 09:00 Weight: 51.001 kg - Exam Quality Assessment: DVT Prophylaxis General: Alert, Oriented, Mild Distress HEENT: Conjunctiva Clear, EOMI, Nares Patent, Normal Nasal Septum, Pupils Equal , Pupils Reactive Neck: Supple, Trachea Midline Lungs: Normal Respiratory Effort Cardiovascular: Regular Rate, Tachycardia GI/Abdominal Exam: Normal Bowel Sounds, Soft, No Organomegaly, No Distention, Tender (lower quad) (Female) Exam: Deferred Rectal (Female) Exam: Deferred Extremities: Normal Inspection Skin: Warm Neurological: Cranial Nerves Intact Neuro Extensive - Mental Status: Alert, Oriented x3, Normal Mood/Affect Neuro Extensive - Motor, Sensory, Reflexes: CN II-XII Intact Psychiatric: Alert, Anxious - Patient Data Lab Results Last 24 hrs: Laboratory Results - last 24 hr 03/14/17 03/14/17 03/15/17 Range/Units 23:38 23:43 05:50 WBC 15.05 H (3.98-10.04) K/mm3 RBC 3.40 L (3.98-5.22) M/mm3 Hgb 10.7 L (11.2-15.7) gm/L Hct 33.2 L (34.1-44.9) % MCV 97.6 H (79.4-94.8) fl MCH 31.5 (25.6-32.2) pg MCHC 32.2 (32.2-35.5) g/dl RDW Std Deviation 43.7 (36.4-46.3) fL Plt Count 168 L (182-369) K/mm3 MPV 11.6 (9.4-12.3) fl Sodium (136-145) mEq/L Potassium (3.5-5.1) mEq/L Chloride (98-107) mEq/L Carbon Dioxide (21-32) mEq/L Anion Gap (5-15) BUN (7-18) mg/dL Creatinine (0.55-1.02) mg/dL Est Cr Clr Drug Dosing mL/min Estimated GFR (MDRD) (>60) mL/min BUN/Creatinine Ratio (14-18) Glucose (83-115) mg/dL POC Glucose 282 H (83-110) mg/dL Lactic Acid 0.9 (0.4-2.0) mmol/L Calcium (8.5-10.1) mg/dL 03/15/17 03/15/17 Range/Units 05:50 07:00 WBC (3.98-10.04) K/mm3 RBC (3.98-5.22) M/mm3 Hgb (11.2-15.7) gm/L Hct (34.1-44.9) % MCV (79.4-94.8) fl MCH (25.6-32.2) pg MCHC (32.2-35.5) g/dl RDW Std Deviation (36.4-46.3) fL Plt Count (182-369) K/mm3 MPV (9.4-12.3) fl Sodium 143 (136-145) mEq/L Potassium 4.0 (3.5-5.1) mEq/L Chloride 106 (98-107) mEq/L Carbon Dioxide 26 (21-32) mEq/L Anion Gap 15.0 (5-15) BUN 47 H (7-18) mg/dL Creatinine 2.0 H (0.55-1.02) mg/dL Est Cr Clr Drug Dosing 20.41 mL/min Estimated GFR (MDRD) 25 (>60) mL/min BUN/Creatinine Ratio 23.5 H (14-18) Glucose 311 H (83-115) mg/dL POC Glucose 297 H (83-110) mg/dL Lactic Acid (0.4-2.0) mmol/L Calcium 8.7 (8.5-10.1) mg/dL Result Diagrams: 03/15/17 05:50 03/15/17 05:50 *Q Meaningful Use (ADM) - VTE *Q VTE Criteria *Q: - Stroke *Q Stroke Criteria *Q: - AMI *Q AMI Criteria *Q: Problem List Initiated/Reviewed/Updated: Yes Orders Last 24hrs: Active Orders 24 hr Category Date Time Status Admission Status [Patient Status] [ADT] Routine ADT 03/14/17 23:58 Active Blood Glucose Check, Bedside [RC] QIDACANDBED Care 03/15/17 00:31 Active Up With Assistance [RC] ASDIRECTED Care 03/15/17 00:37 Active [employer] Diet [DIET] Diet 03/15/17 Breakfast Active NPO [Nothing Per Oral Diet] [DIET] Diet 03/15/17 Lunch Active Ondansetron [Zofran ODT] Med 03/15/17 00:31 Active 4 mg PO Q6H PRN Ondansetron [Zofran] Med 03/15/17 08:42 Active 4 mg IVPUSH Q4H PRN Pneumococcal Polyvalent-23 Vac [Pneumovax 23] Med 03/16/17 09:00 Once 0.5 ml SUBCUT .ONCE ONE Sodium Chloride 0.9% [Normal Saline] 1,000 ml Med 03/15/17 00:45 Active IV ASDIRECTED cefTRIAXone [Rocephin] 1 gm Med 03/15/17 23:00 Active Sodium Chloride 0.9% [Normal Saline] 100 ml IV Q24H Resuscitation Status Routine Resus Stat 03/15/17 00:31 Ordered Medication Orders Sodium Chloride (Normal Saline) 1,000 mls @ 125 mls/hr IV ASDIRECTED ADEEL Last Admin: 03/15/17 02:44 Dose: 125 mls/hr Ceftriaxone Sodium 1 gm/ (Sodium Chloride) 100 mls @ 200 mls/hr IV Q24H [facility] Ondansetron HCl (Zofran Odt) 4 mg PO Q6H PRN PRN Reason: Nausea/Vomiting Ondansetron HCl (Zofran) 4 mg IVPUSH Q4H PRN PRN Reason: Nausea/Vomiting Last Admin: 03/15/17 08:49 Dose: 4 mg Pneumococcal Polyvalent Vaccine (Pneumovax 23) 0.5 ml SUBCUT .ONCE ONE Stop: 03/16/17 09:01 Assessment/Plan Comment:: Impression: DM type II---> Hyperglycemia with frequent adjustment of insulin. Patient reports running out of insulin as well. Former insulin pump patient AUTI-->first dose of Rocephin in the ED Abdominal pain, unspecified; coffee ground emesis Chronic Gastroparesis with N/V CVA Anxiety Plan: IVF NPO-->advance to clear liquids Low dose SS Novolog Rocephin QD Protonix 40 mg IV BID Gen surg re: EGD Check H pylori Home meds Daily Labs AXR, 2 view CM/PT/OT DVT/GI prophylaxis
[2017-03-15] MEDS ORDERED: 50% Dextrose in Water 50 ML Syringe IVPUSH PRN (09:57)
[2017-03-15] MEDS: Pantoprazole 40 MG Vial IVPUSH SCH ×2 (10:17→21:46)
[2017-03-15] MEDS: Insulin Aspart 100 Units/ML 3 ML Pen SUBCUT SCH ×3 (12:10→21:41)
[2017-03-15] MEDS: Metoclopramide 10 MG/2 ML SDV IVPUSH PRN ×2 (12:11→22:05)
[2017-03-15] MEDS: Sodium Chloride 0.45% 1,000 ML IV SCH ×2 (12:13→21:37)
[2017-03-15] MEDS ORDERED: hydrALAZINE 20 MG/ML SDV IVPUSH PRN (12:19)
[2017-03-15] MEDS ORDERED: LORazepam 2 MG/ML MDV IVPUSH ONE (12:22)
[2017-03-15] MEDS ORDERED: HYDROmorphone 1 MG/ML Syringe IVPUSH ONE (12:22)
[2017-03-15] MEDS ORDERED: Sodium Chloride 0.45% 1,000 ML IV SCH (12:30)
--- NOTE | 2017-03-15 13:20 | CR ---
Abdomen: Supine and upright views of the abdomen were obtained. Comparison: No previous study. Large calcification which is felt compatible with gallstone is seen within the right upper abdomen measuring approximately 1.5 cm. Several air-fluid levels are seen within small bowel which can be seen normally. No small bowel dilatation is seen. Mild vascular calcification is noted. No free air is seen. Bony structures are within normal limits for the patient's age. Impression: 1. Findings which are felt to be incidental as described above. Diagnostic code #2
--- NOTE | 2017-03-15 13:58 | CR ---
Chest: Two views of the chest were obtained. Comparison: Previous chest x-ray of 10/14/16. Heart size appears within normal limits. Tortuous thoracic aorta is seen. Lungs are clear. Mild scoliosis is noted within the spine. Heart size is normal. Lungs are clear. Upper mediastinum is normal. Mild scoliosis is present within the spine. Slight deformity from old healed fracture is noted within the proximal humerus. Impression: 1. Incidental findings. Nothing acute is identified on two-view chest x-ray. Diagnostic code #2
[2017-03-15] MEDS ORDERED: HYDROmorphone 1 MG/ML Syringe IVPUSH PRN (14:26)
[2017-03-15] MEDS ORDERED: Metoprolol Tartrate 5 MG/5 ML SDV IVPUSH PRN (18:12)
[2017-03-15] MEDS ORDERED: Pramipexole 0.5 MG Tab PO SCH ×2 (19:30→21:15)
[2017-03-15] MEDS ORDERED: cefTRIAXone 1 GM in Sodium Chloride 0.9% 100 ML IV SCH ×2 (21:00→23:00)
[2017-03-15] MEDS: Sodium Bicarbonate 650 MG Tab PO SCH (21:38)
[2017-03-15] MEDS: Pramipexole 0.25 MG Tab PO SCH (21:40)
[2017-03-15] MEDS: LORazepam 0.5 MG Tab PO PRN (23:30)
[2017-03-16] MEDS: Metoclopramide 10 MG/2 ML SDV IVPUSH PRN (04:21)
[2017-03-16] MEDS: LORazepam 0.5 MG Tab PO PRN (04:29)
[2017-03-16] MEDS: Sodium Chloride 0.45% 1,000 ML IV SCH ×3 (06:45→21:09)
[2017-03-16] MEDS: Insulin Aspart 100 Units/ML 3 ML Pen SUBCUT SCH ×4 (06:47→21:14)
[2017-03-16] MEDS: Saccharomyces Boulardii (Probiotic) 250 MG Cap PO SCH ×2 (08:46→20:56)
[2017-03-16] MEDS: Sertraline 50 MG Tab PO SCH (08:47)
[2017-03-16] MEDS: Pantoprazole 40 MG Tab.CR PO SCH ×2 (08:47→20:57)
[2017-03-16] MEDS: Rosuvastatin 10 MG Tab PO SCH (08:47)
[2017-03-16] MEDS: Sodium Bicarbonate 650 MG Tab PO SCH ×2 (08:48→20:56)
[2017-03-16] MEDS ORDERED: Diphtheria,Pertussis(Acell),Tetanus Vaccine 0.5 ML SDV IM ONE (09:00)
[2017-03-16] MEDS ORDERED: Pramipexole 0.25 MG Tab PO SCH (09:00)
[2017-03-16] MEDS ORDERED: Pneumococcal Polyvalent-23 Vaccine 0.5 ML SDV SUBCUT ONE (09:00)
[2017-03-16] MEDS ORDERED: Enoxaparin 30 MG/0.3 ML Syringe SUBCUT SCH (09:00)
[2017-03-16] MEDS: Ondansetron 4 MG Tab.DIS PO PRN ×2 (09:09→15:28)
[2017-03-16] MEDS: Pramipexole 0.25 MG Tab PO SCH (09:09)
--- NOTE | 2017-03-16 10:32 | US ---
Abdominal ultrasound: Multiple real-time images were obtained transabdominally. Comparison: No previous study. Liver shows no focal parenchymal abnormality. Aorta shows some atherosclerotic change without aneurysmal dilatation. Gallbladder shows a large gallstone measuring 2.1 cm. Other smaller gallstones are seen. Gallbladder wall is slightly prominent in thickness. No biliary duct dilatation is seen. Slightly prominent renal pyramids are seen within both kidneys which are incidental. 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 Kidneys otherwise appear within normal limits. Right kidney measures 9.9 cm in length. Left kidney measures 10.6 cm in length. Spleen size is normal. Pancreas is incompletely seen. Visualized portions of the pancreas are within normal limits. Inferior vena cava is patent. Impression: 1. Gallstones with mild gallbladder wall thickening. No biliary duct dilatation is seen. 2. Other incidental findings. Diagnostic code #3
--- NOTE | 2017-03-16 11:45 | PCM.PN ---
- General Info Date of Service: 03/16/17 Functional Status: Reports: Pain Controlled (After Dilaudid was administered) - Review of Systems General: Reports: No Symptoms Pulmonary: Reports: Cough. Denies: Shortness of Breath Cardiovascular: Reports: No Symptoms. Denies: Chest Pain Gastrointestinal: Reports: Nausea. Denies: Vomiting Skin: Reports: No Symptoms Systems Review Comment:: Selena states she has a cough this morning and nausea. She has not vomited this morning. Abdominal pain kept her awake last night. She said her abdominal pain was controlled with the Dilaudid this morning. Her son says her buyer broker is Dr. Walker. - Patient Data Vitals - Most Recent: Last Vital Signs Temp 98.8 F 03/16/17 09:38 Pulse 96 03/16/17 09:51 Resp 12 03/16/17 09:38 BP 130/60 03/16/17 09:51 Pulse Ox 71 L 03/16/17 09:38 Weight - Most Recent: 118 lb I&O - Last 24 Hours: Intake & Output 03/15/17 03/16/17 03/16/17 22:59 06:59 14:59 Intake Total 2619 1652 Output Total 1300 900 Balance 1319 752 Lab Results Last 24 Hours: Laboratory Results - last 24 hr 03/15/17 03/15/17 03/15/17 Range/Units 05:50 11:45 12:28 WBC (3.98-10.04) K/mm3 RBC (3.98-5.22) M/mm3 Hgb (11.2-15.7) gm/L Hct (34.1-44.9) % MCV (79.4-94.8) fl MCH (25.6-32.2) pg MCHC (32.2-35.5) g/dl RDW Std Deviation (36.4-46.3) fL Plt Count (182-369) K/mm3 MPV (9.4-12.3) fl Neut % (Auto) (34.0-71.1) % Lymph % (Auto) (19.3-51.7) % [place] % (Auto) (4.7-12.5) % Eos % (Auto) (0.7-5.8) Baso % (Auto) (0.1-1.2) % Neut # (Auto) (1.56-6.13) K/mm3 Lymph # (Auto) (1.18-3.74) K/mm3 [place] # (Auto) (0.24-0.36) K/mm3 Eos # (Auto) (0.04-0.36) K/mm3 Baso # (Auto) (0.01-0.08) K/mm3 Manual Slide Review Sodium (136-145) mEq/L Potassium (3.5-5.1) mEq/L Chloride (98-107) mEq/L Carbon Dioxide (21-32) mEq/L Anion Gap (5-15) BUN (7-18) mg/dL Creatinine (0.55-1.02) mg/dL Est Cr Clr Drug Dosing mL/min Estimated GFR (MDRD) (>60) mL/min BUN/Creatinine Ratio (14-18) Glucose (83-115) mg/dL POC Glucose 293 H (83-110) mg/dL Hemoglobin A1c (4.50-6.20) % Lactic Acid 1.1 (0.4-2.0) mmol/L Calcium (8.5-10.1) mg/dL Magnesium (1.8-2.4) mg/dl C-Reactive Protein (<1.0) mg/dL Lipase 45 L (73-393) U/L TSH 3rd Generation (0.358-3.74) uIU/mL H. pylori IgG Antibody (NEGATIVE) 03/15/17 03/15/17 03/16/17 Range/Units 17:04 21:30 06:00 WBC (3.98-10.04) K/mm3 RBC (3.98-5.22) M/mm3 Hgb (11.2-15.7) gm/L Hct (34.1-44.9) % MCV (79.4-94.8) fl MCH (25.6-32.2) pg MCHC (32.2-35.5) g/dl RDW Std Deviation (36.4-46.3) fL Plt Count (182-369) K/mm3 MPV (9.4-12.3) fl Neut % (Auto) (34.0-71.1) % Lymph % (Auto) (19.3-51.7) % [place] % (Auto) (4.7-12.5) % Eos % (Auto) (0.7-5.8) Baso % (Auto) (0.1-1.2) % Neut # (Auto) (1.56-6.13) K/mm3 Lymph # (Auto) (1.18-3.74) K/mm3 [place] # (Auto) (0.24-0.36) K/mm3 Eos # (Auto) (0.04-0.36) K/mm3 Baso # (Auto) (0.01-0.08) K/mm3 Manual Slide Review Sodium (136-145) mEq/L Potassium (3.5-5.1) mEq/L Chloride (98-107) mEq/L Carbon Dioxide (21-32) mEq/L Anion Gap (5-15) BUN (7-18) mg/dL Creatinine (0.55-1.02) mg/dL Est Cr Clr Drug Dosing mL/min Estimated GFR (MDRD) (>60) mL/min BUN/Creatinine Ratio (14-18) Glucose (83-115) mg/dL POC Glucose 253 H 256 H 288 H (83-110) mg/dL Hemoglobin A1c (4.50-6.20) % Lactic Acid (0.4-2.0) mmol/L Calcium (8.5-10.1) mg/dL Magnesium (1.8-2.4) mg/dl C-Reactive Protein (<1.0) mg/dL Lipase (73-393) U/L TSH 3rd Generation (0.358-3.74) uIU/mL H. pylori IgG Antibody (NEGATIVE) 03/16/17 03/16/17 03/16/17 Range/Units 06:05 06:05 06:05 WBC 12.52 H (3.98-10.04) K/mm3 RBC 3.23 L (3.98-5.22) M/mm3 Hgb 10.1 L (11.2-15.7) gm/L Hct 31.6 L (34.1-44.9) % MCV 97.8 H (79.4-94.8) fl MCH 31.3 (25.6-32.2) pg MCHC 32.0 L (32.2-35.5) g/dl RDW Std Deviation 43.5 (36.4-46.3) fL Plt Count 145 L (182-369) K/mm3 MPV 11.7 (9.4-12.3) fl Neut % (Auto) 82.8 H (34.0-71.1) % Lymph % (Auto) 7.8 L (19.3-51.7) % [place] % (Auto) 8.5 (4.7-12.5) % Eos % (Auto) 0.2 L (0.7-5.8) Baso % (Auto) 0.2 (0.1-1.2) % Neut # (Auto) 10.37 H (1.56-6.13) K/mm3 Lymph # (Auto) 0.98 L (1.18-3.74) K/mm3 [place] # (Auto) 1.06 H (0.24-0.36) K/mm3 Eos # (Auto) 0.03 L (0.04-0.36) K/mm3 Baso # (Auto) 0.02 (0.01-0.08) K/mm3 Manual Slide Review Normal smear Sodium 136 (136-145) mEq/L Potassium 3.8 (3.5-5.1) mEq/L Chloride 101 (98-107) mEq/L Carbon Dioxide 21 (21-32) mEq/L Anion Gap 17.8 H (5-15) BUN 38 H (7-18) mg/dL Creatinine 1.7 H (0.55-1.02) mg/dL Est Cr Clr Drug Dosing 24.01 mL/min Estimated GFR (MDRD) 30 (>60) mL/min BUN/Creatinine Ratio 22.4 H (14-18) Glucose 302 H (83-115) mg/dL POC Glucose (83-110) mg/dL Hemoglobin A1c 7.90 H (4.50-6.20) % Lactic Acid (0.4-2.0) mmol/L Calcium 8.5 (8.5-10.1) mg/dL Magnesium 1.5 L (1.8-2.4) mg/dl C-Reactive Protein 1.8 H* (<1.0) mg/dL Lipase (73-393) U/L TSH 3rd Generation 2.047 (0.358-3.74) uIU/mL H. pylori IgG Antibody (NEGATIVE) 03/16/17 03/16/17 Range/Units 06:05 11:15 WBC (3.98-10.04) K/mm3 RBC (3.98-5.22) M/mm3 Hgb (11.2-15.7) gm/L Hct (34.1-44.9) % MCV (79.4-94.8) fl MCH (25.6-32.2) pg MCHC (32.2-35.5) g/dl RDW Std Deviation (36.4-46.3) fL Plt Count (182-369) K/mm3 MPV (9.4-12.3) fl Neut % (Auto) (34.0-71.1) % Lymph % (Auto) (19.3-51.7) % [place] % (Auto) (4.7-12.5) % Eos % (Auto) (0.7-5.8) Baso % (Auto) (0.1-1.2) % Neut # (Auto) (1.56-6.13) K/mm3 Lymph # (Auto) (1.18-3.74) K/mm3 [place] # (Auto) (0.24-0.36) K/mm3 Eos # (Auto) (0.04-0.36) K/mm3 Baso # (Auto) (0.01-0.08) K/mm3 Manual Slide Review Sodium (136-145) mEq/L Potassium (3.5-5.1) mEq/L Chloride (98-107) mEq/L Carbon Dioxide (21-32) mEq/L Anion Gap (5-15) BUN (7-18) mg/dL Creatinine (0.55-1.02) mg/dL Est Cr Clr Drug Dosing mL/min Estimated GFR (MDRD) (>60) mL/min BUN/Creatinine Ratio (14-18) Glucose (83-115) mg/dL POC Glucose 278 H (83-110) mg/dL Hemoglobin A1c (4.50-6.20) % Lactic Acid (0.4-2.0) mmol/L Calcium (8.5-10.1) mg/dL Magnesium (1.8-2.4) mg/dl C-Reactive Protein (<1.0) mg/dL Lipase (73-393) U/L TSH 3rd Generation (0.358-3.74) uIU/mL H. pylori IgG Antibody Negative (NEGATIVE) Med Orders - Current: Current Medications Dextrose/Water (Dextrose 50% In Water) 50 ml IVPUSH ASDIRECTED PRN PRN Reason: Hypoglycemia Enoxaparin Sodium (Lovenox) 30 mg SUBCUT DAILY [facility] Last Admin: 03/16/17 08:49 Dose: 30 mg Hydralazine HCl (Apresoline) 20 mg IVPUSH Q6H PRN PRN Reason: Hypertension Last Admin: 03/15/17 17:10 Dose: 20 mg Hydromorphone HCl (Dilaudid) 1 mg IVPUSH Q6H PRN PRN Reason: Pain (severe 7-10) Last Admin: 03/16/17 09:06 Dose: 1 mg Ceftriaxone Sodium 1 gm/ (Sodium Chloride) 100 mls @ 200 mls/hr IV Q24H [facility] Last Admin: 03/15/17 21:38 Dose: 200 mls/hr Sodium Chloride (Sodium Chloride 0.45%) 1,000 mls @ 125 mls/hr IV ASDIRECTED [facility] Last Admin: 03/16/17 06:45 Dose: 125 mls/hr Sodium Chloride (Sodium Chloride 0.45%) 1,000 mls @ 999 mls/hr IV ASDIRECTED [facility] Last Admin: 03/15/17 12:29 Dose: 999 mls/hr Insulin Aspart (Novolog) 0 unit SUBCUT QIDACANDBED [facility] PRN Reason: Protocol Last Admin: 03/16/17 06:47 Dose: 3 units Lorazepam (Ativan) 0.25 mg PO QID PRN PRN Reason: Anxiety Last Admin: 03/16/17 04:29 Dose: 0.25 mg Metoclopramide HCl (Reglan) 10 mg IVPUSH Q6H PRN PRN Reason: Nausea/Vomiting Last Admin: 03/16/17 04:21 Dose: 10 mg Metoprolol Tartrate (Lopressor) 5 mg IVPUSH Q6H PRN PRN Reason: Hypertension Last Admin: 03/15/17 18:24 Dose: 5 mg Ondansetron HCl (Zofran Odt) 4 mg PO Q6H PRN PRN Reason: Nausea/Vomiting Last Admin: 03/16/17 09:09 Dose: 4 mg Pantoprazole Sodium (Protonix) 40 mg PO BID [facility] Last Admin: 03/16/17 08:47 Dose: 40 mg Pramipexole Dihydrochloride (Mirapex) 0.5 - 1 mg PO DAILY [facility] Last Admin: 03/16/17 09:09 Dose: 1 mg Rosuvastatin Calcium (Crestor) 10 mg PO DAILY [facility] Last Admin: 03/16/17 08:47 Dose: 10 mg Saccharomyces Boulardii (Florastor) 250 mg PO BID [facility] Last Admin: 03/16/17 08:46 Dose: 250 mg Sertraline HCl (Zoloft) 150 mg PO DAILY [facility] Last Admin: 03/16/17 08:47 Dose: 150 mg Sodium Bicarbonate (Sodium Bicarbonate) 325 mg PO BID [facility] Last Admin: 03/16/17 08:48 Dose: 325 mg Discontinued Medications Diphtheria/Tetanus/Acell Pertussis (Adacel) 0.5 ml IM .ONCE ONE Stop: 03/16/17 09:01 Hydromorphone HCl (Dilaudid) 1 mg IVPUSH ONETIME ONE Stop: 03/15/17 12:23 Last Admin: 03/15/17 12:28 Dose: 1 mg Sodium Chloride (Normal Saline) 1,000 mls @ 250 mls/hr IV ASDIRECTED [facility] Last Admin: 03/14/17 20:31 Dose: 250 mls/hr Ceftriaxone Sodium 1 gm/ (Sodium Chloride) 100 mls @ 200 mls/hr IV ONETIME ONE Stop: 03/15/17 00:04 Last Admin: 03/14/17 23:55 Dose: 200 mls/hr Sodium Chloride (Normal Saline) 1,000 mls @ 125 mls/hr IV ASDIRECTED [facility] Last Admin: 03/15/17 02:44 Dose: 125 mls/hr Ceftriaxone Sodium 1 gm/ (Sodium Chloride) 100 mls @ 200 mls/hr IV Q24H [facility] Lorazepam (Ativan) 1 mg IVPUSH ONETIME ONE Stop: 03/15/17 12:23 Last Admin: 03/15/17 17:23 Dose: Not Given Ondansetron HCl (Zofran Odt) 4 mg PO ONETIME ONE Stop: 03/14/17 20:14 Last Admin: 03/14/17 20:17 Dose: 4 mg Ondansetron HCl (Zofran) 4 mg IVPUSH ONETIME ONE Stop: 03/14/17 21:48 Last Admin: 03/14/17 22:06 Dose: 4 mg Ondansetron HCl (Zofran) 4 mg IVPUSH Q4H PRN PRN Reason: Nausea/Vomiting Last Admin: 03/15/17 08:49 Dose: 4 mg Pantoprazole Sodium (Protonix Iv) 40 mg IVPUSH Q12H [facility] Last Admin: 03/15/17 21:46 Dose: 40 mg Pneumococcal Polyvalent Vaccine (Pneumovax 23) 0.5 ml SUBCUT .ONCE ONE Stop: 03/16/17 09:01 Pramipexole Dihydrochloride (Mirapex) 0.5 - 1 mg PO DAILY [facility] Last Admin: 03/16/17 03:11 Dose: Not Given Pramipexole Dihydrochloride (Mirapex) 0.5 - 1 mg PO DAILY [facility] - Exam General: Sedated Lungs: Clear to Auscultation, Normal Respiratory Effort Cardiovascular: Regular Rate, Regular Rhythm GI/Abdominal Exam: Normal Bowel Sounds, Soft, Non-Tender, No Organomegaly, No Distention Physical Findings Comments:: She was sedated and tired this morning after the administration of Dilaudid. She had difficulty staying awake. Her bowel sounds were normal, and her abdomen was soft and nontender. Her ultrasound report showed one 2.1 cm gallstone and multiple smaller gallstones with a slightly thickened gallbladder wall. There was no cystic duct dilation. There was a 6 mm hyperechoic area in the left kidney which is possibly an angiomyolipoma. - Problem List Review Problem List Initiated/Reviewed/Updated: Yes - Assessment Assessment:: Assessment: Diabetes mellitus with hyperglycemia Gastroparesis Gallstones Hyperechoic area of left kidney Recent history of coffee-ground emesis Hypertension Plan: CT of abdomen with contrast to assess kidneys, gallbladder, stomach, and bowels EGD to explore cause of coffee-ground emesis Adjust Dilaudid dose from 1 mg to .5 mg to help prevent sedation - Plan Plan:: Impression: DM type II---> Hyperglycemia with frequent adjustment of insulin. Patient reports running out of insulin as well. Former insulin pump patient AUTI-->first dose of Rocephin in the ED Abdominal pain, unspecified; coffee ground emesis Chronic Gastroparesis with N/V CVA Anxiety Plan: IVF NPO-->advance to clear liquids Low dose SS Novolog Rocephin QD Protonix 40 mg IV BID Gen surg re: EGD Check H pylori Home meds Daily Labs AXR, 2 view CM/PT/OT DVT/GI prophylaxis
[2017-03-16] MEDS ORDERED: HYDROmorphone 0.5 MG/0.5 ML Syringe IVPUSH PRN (13:11)
[2017-03-16] MEDS ORDERED: Sodium Chloride 0.45% 1,000 ML IV ONE (16:16)
[2017-03-16] MEDS ORDERED: Diatrizoate Meglumine/Diatrizoate Sodium 37% 120 ML Bottle PO ONE (16:41)
[2017-03-16] MEDS ORDERED: Scopolamine 1.5 MG Transdermal Patch TRDERM PRN (17:05)
--- NOTE | 2017-03-16 17:23 | CT ---
CT chest Technique: Multiple axial sections through the chest were obtained. Intravenous contrast not utilized which diminishes details. Comparison: Previous chest x-ray of 03/14/17. Findings: Small bilateral pleural effusions are seen with bibasilar atelectasis. Coronary artery calcification is seen. Small lymph nodes are noted within the mediastinum which are felt to be within normal limits. Thoracic aorta shows no aneurysm. Atherosclerotic calcification is seen within the aorta. Slight parenchymal density is seen within the superior segment of left lower lung which could represent atelectasis as well as change from aspiration or even pneumonia. Mild body wall edema is seen. Bone window settings appear within normal limits for the patient's age. Impression: 1. Small bilateral pleural effusions with bibasilar atelectasis. 2. Mild parenchymal density within the superior segment of the left lower lung with differential of atelectasis, aspiration and pneumonia. 3. Other incidental findings. Diagnostic code #3 CT abdomen and pelvis Technique: Multiple axial sections were obtained from above the dome of the diaphragm inferiorly through the pubic symphysis. Small amount of oral contrast is noted. No intravenous contrast is present. Details are somewhat limited. Comparison: No previous CT exam, previous abdominal ultrasound performed earlier on 03/16/17. Findings: Liver shows diffuse fatty infiltration. Gallbladder shows single large gallstone. Spleen size is normal. Adrenal glands show no discrete abnormality. Contrast reflux noted into the distal esophagus. Kidneys show no abnormal calcifications or hydronephrosis. Very small low-density lesion noted within the left kidney measuring less than 5 mm which appears to contain fat which is felt to correlate to the small echogenic lesion on ultrasound compatible with angiomyolipoma. Pancreas shows no discrete abnormality. Aorta and iliac vessels shows atherosclerotic change. No aneurysm is seen. No retroperitoneal adenopathy or mesenteric abnormalities are seen. No pelvic mass or adenopathy is seen. No bowel dilatation is seen. No inflammatory change or free fluid is seen. Impression: 1. Fatty infiltration within the liver. 2. Single large gallstone within the gallbladder. 3. Other incidental findings as noted above. Diagnostic code #3
[2017-03-17] MEDS: Sodium Chloride 0.45% 1,000 ML IV SCH (04:55)
[2017-03-17] MEDS ORDERED: Naloxone 2 MG/2 ML Syringe IVPUSH ONE (05:30)
[2017-03-17] MEDS ORDERED: Naloxone 0.4 MG/ML SDV ONE (05:32)
[2017-03-17] MEDS: Insulin Aspart 100 Units/ML 3 ML Pen SUBCUT SCH ×2 (06:15→11:18)
[2017-03-17] MEDS ORDERED: Levofloxacin/Dextrose 5%-Water 750 MG in Premix Bag 1 BAG IV ONE (06:18)
[2017-03-17] MEDS ORDERED: Enoxaparin 60 MG/0.6 ML Syringe SUBCUT ONE (06:29)
[2017-03-17] MEDS ORDERED: Sodium Chloride 0.9% 500 ML IV ONE (06:54)
[2017-03-17] MEDS ORDERED: Ondansetron 4 MG/2 ML SDV IVPUSH ONE ×2 (06:57→09:33)
[2017-03-17] MEDS ORDERED: Magnesium Sulfate/Water 2 GM in Premix Bag 1 BAG IV ONE ×2 (06:59→10:49)
[2017-03-17] MEDS ORDERED: Sodium Chloride 0.9% 1,000 ML IV SCH (07:00)
--- NOTE | 2017-03-17 07:01 | CT ---
Head CT Technique: Multiple axial sections through the brain were obtained. Intravenous contrast was not utilized. Comparison: Previous head CT study of 08/13/16. Findings: Ventricles along with basal cisterns and sulci over the convexities are mildly prominent. Mild diminished density noted within the subcortical and periventricular white matter compatible with small vessel ischemic demyelination change. Several old lacunar infarcts noted within the basal ganglia. No other abnormal parenchymal densities are seen. No evidence of intracranial hemorrhage. No midline shift or mass effect is seen. Atherosclerotic calcification is seen within the vertebral vessels and within the carotid siphon. Bone window settings show the visualized sinuses to appear clear. No acute calvarial abnormality is identified. Impression: 1. Senescent change as described above. No acute intracranial abnormality is identified. Diagnostic code #2 I agree with preliminary report issued by [facility] ([facility] preliminary report dictated on 03/17/17, 7:36 AM Central Time)
--- NOTE | 2017-03-17 07:32 | PCM.SN ---
- Free Text/Narrative Note: Selena is seen upon arrival to the floor this morning around 0615. She has been transferred to ICU around an hour prior for AMS. Head CT was obtained and she rec'd narcan with no change in mental status. Brief Neuro Exam: She is looking to the left, unable to turn head to the right. She is able to answer all of my questions appropriately. She is unable to squeeze my hands, unable to hold her hands/arms up at all but when I tell her it appears she is having a heart attack and kidney failure is worsening she analytical lead her hands to the point that her O2 sat monitor is unable to read. She is able to plantar flex her feet with 1/5 strengths when asked, unable to dorsiflex on exam. Heart: tachycardic, but RRR, unable to detect murmur Lungs: CTAB, decreased at bases, no adventitious sounds Extremities: without edema, no clubbing or cyanosis Labs this am: troponin elevated at 0.3 CKMB 13.7 EKG with sinus tach with ST depression of 2mm in leads 2,3,4,5,6. Creatinine is worsening to 2.[address] reviewed by this provider- appears unremarkable for acute change. [facility] report also negative. Reviewed all above findings with Dr. Rodriguez Plan as outlined below: Call placed to attempt to reach son to arrange transfer to [facility]- NSTEMI/ARF/ AMS, patient in agreement to transfer Metoprolol 25mg PO BID Fluid bolus 500cc then TRA 125cc/hr Hood cath Mag replacement, 2gm Antiemetic 2nd IV line Repeat enzymes at 0700 Repeat EKG at 0730 Lovenox 60mg now ICU nurses updated, Dr. Rodriguez updated and agrees to POC. Will await call back from son, repeat labs and make transfer arrangements.
[2017-03-17] MEDS: Metoprolol Tartrate 25 MG Tab PO SCH ×2 (07:54→09:29)
[2017-03-17] MEDS ORDERED: Metoprolol Tartrate 5 MG in Sodium Chloride 0.9% 50 ML IV ONE (08:32)
--- NOTE | 2017-03-17 08:42 | CR ---
Chest: Frontal view of the chest was obtained utilizing portable technique. Comparison: Previous chest x-ray of 03/14/17. Heart size and mediastinum are within normal limits for portable technique. Lung markings are slightly increased believed to be technique related and chronic. No acute infiltrates are appreciated. Scoliosis is seen most of which appears to be positional. Impression: 1. Incidental findings. Nothing acute is appreciated. Diagnostic code #2
[2017-03-17] MEDS ORDERED: Metoprolol Tartrate 5 MG/5 ML SDV IVPUSH ONE (08:45)
[2017-03-17] MEDS ORDERED: Levofloxacin/Dextrose 5%-Water 750 MG in Premix Bag 1 BAG IV SCH (09:00)
[2017-03-17] MEDS: Rosuvastatin 10 MG Tab PO SCH (09:14)
[2017-03-17] MEDS: Sodium Bicarbonate 650 MG Tab PO SCH (09:15)
[2017-03-17] MEDS: Pramipexole 0.25 MG Tab PO SCH (09:15)
[2017-03-17] MEDS: Pantoprazole 40 MG Tab.CR PO SCH (09:16)
[2017-03-17] MEDS: Saccharomyces Boulardii (Probiotic) 250 MG Cap PO SCH (09:16)
[2017-03-17] MEDS: Sertraline 50 MG Tab PO SCH (09:16)
[2017-03-17] MEDS ORDERED: Sodium Chloride 0.45% 1,000 ML IV SCH (11:45)
[2017-03-17 12:03] VITALS: BP 103/54
--- NOTE | 2017-03-18 16:12 | PCM.DCSUM1 ---
Discharge Summary - Hospital Course HPI Initial Comments: 72 year old female presented with AUTI, had elevated blood sugars; IV antibiotics and fluid resuscitation was provided. Sliding scale insulin, initially she responded to care with advancement of her diet. However abdominal pain, and nausea became more prevalent; she became more confused, lab studies were drawn, a CT of the head performed. No acute changes were seen , but she was unable to follow commands. She was subsequently moved to the ICU ; a troponin that was drawn supported a Non STEMI, however this was in the setting of acute on chronic renal failure. Laboratory studies to confirm DKA were drawn and she was started on an insulin drip with aggressive fluid resuscitation. She was accepted by the hospitalist at [facility] for a higher level of care including cardiology and nephrology. The patient sees Dr Walker for her nephrology needs. The patient will travel by ambulance; she has been accepted by Dr Schmitz. Primary Dx ACS/NonSTEMI Acute on chronic renal failure DKA AUTI Medication See list, includes insulin drip IVF, 125 cc/hr - Discharge Data Discharge Date: 03/17/17 Discharge Disposition: DC/Tfer to Acute Hospital 02 Condition: Good - Patient Summary/Data Consults: Consultations 03/15/17 09:59 Consult to Case Management [CONS] Routine Consult to Redrawer [Consult to Diabetic Nurse Specialist] [CONS] Routine Consult to Physical Therapy [PT Evaluation and Treatment] [CONS] Routine 03/15/17 10:00 Consult to Occupational Therapy [OT Evaluation and Treatment] [CONS] Routine - Patient Instructions Diet: NPO Activity: Bedrest, May Use Bathroom Driving: Do Not Drive Showering/Bathing: May Shower Notify Provider of: Increased Pain, Nausea and/or Vomiting - Discharge Plan Home Medications: Home Meds Calcium Carbonate [Calcium] 600 mg PO DAILY 10/14/16 [History] Cholecalciferol (Vitamin D3) [Vitamin D3] 2,000 unit PO DAILY 10/14/16 [History] Cyanocobalamin (Vitamin B12) [Vitamin B12] 1 tab PO DAILY 10/14/16 [History] Folic Acid 1 mg PO DAILY 10/14/16 [History] LORazepam [Ativan] 0.25 mg PO QID PRN 10/14/16 [History] Metoclopramide [Reglan] 10 mg PO BTHMEALBED 10/14/16 [History] Multivit-Min/FA/Lycopene/Lut [Centrum Silver Tablet] 1 tab PO DAILY 10/14/16 [ History] Sertraline [Zoloft] 150 mg PO DAILY 10/14/16 [History] Sodium Bicarbonate 325 mg PO BID 10/14/16 [History] Insulin Glarg,Human.Rec.Analog [LantUS] 15 unit SUBCUT ACBREAKFAST 03/14/17 [ History] Insulin Lispro [Humalog] 3 units SQ TIDMEALS 03/14/17 [History] Omeprazole Magnesium [Prilosec Otc] 20 mg PO DAILY 03/14/17 [History] Ondansetron HCl [Zofran] 4 - 8 mg PO TID PRN 03/14/17 [History] Pramipexole [Mirapex] 0.5 - 1 mg PO DAILY 03/14/17 [History] atorvaSTATin [Lipitor] 40 mg PO DAILY 03/14/17 [History] Aspirin [Ecotrin] 325 mg PO DAILY 03/15/17 [History] Patient Handouts: Urinary Tract Infection, Adult, [id number], Gastroparesis Referrals: Dionna Willson, [employer] [Primary Care Provider] - - Discharge Summary/Plan Comment DC Time >30 min.: Yes (Transfer for higher level of care) - General Info Date of Service: 03/14/17 Functional Status: Reports: Pain Controlled, Urinating - Review of Systems General: Reports: Weakness, Malaise HEENT: Reports: No Symptoms Pulmonary: Reports: No Symptoms Cardiovascular: Reports: No Symptoms Gastrointestinal: Reports: Abdominal Pain, Nausea Genitourinary: Reports: No Symptoms Musculoskeletal: Reports: No Symptoms Skin: Reports: No Symptoms Neurological: Reports: No Symptoms Psychiatric: Reports: No Symptoms - Patient Data Vitals - Most Recent: Last Vital Signs Temp 36.4 C 03/17/17 12:00 Pulse 84 03/17/17 12:00 Resp 18 03/17/17 12:00 BP 103/54 L 03/17/17 12:00 Pulse Ox 100 03/17/17 12:00 Weight - Most Recent: 56.835 kg DEB Results - Last 24 hrs: Microbiology 03/15/17 12:36 Aerobic Blood Culture - Preliminary Blood - Venous - Lab Draw NO GROWTH AFTER 3 DAYS Anaerobic Blood Culture - Preliminary NO GROWTH AFTER 3 DAYS 08/13/17 12:28 Aerobic Blood Culture - Preliminary Blood - Venous NO GROWTH AFTER 3 DAYS Anaerobic Blood Culture - Preliminary NO GROWTH AFTER 3 DAYS Med Orders - Current: Current Medications Discontinued Medications Dextrose/Water (Dextrose 50% In Water) 50 ml IVPUSH ASDIRECTED PRN PRN Reason: Hypoglycemia Diatrizoate Meglum/Diatrizoate Sod (Gastrografin 37%) 90 ml PO ONETIME ONE Stop: 03/16/17 16:42 Last Admin: 03/16/17 17:07 Dose: 90 ml Diphtheria/Tetanus/Acell Pertussis (Adacel) 0.5 ml IM .ONCE ONE Stop: 03/16/17 09:01 Enoxaparin Sodium (Lovenox) 30 mg SUBCUT DAILY [facility] Last Admin: 03/16/17 08:49 Dose: 30 mg Enoxaparin Sodium (Lovenox) 60 mg SUBCUT ONETIME ONE Stop: 03/17/17 06:30 Last Admin: 03/17/17 07:52 Dose: 60 mg Hydralazine HCl (Apresoline) 20 mg IVPUSH Q6H PRN PRN Reason: Hypertension Last Admin: 03/15/17 17:10 Dose: 20 mg Hydromorphone HCl (Dilaudid) 1 mg IVPUSH ONETIME ONE Stop: 03/15/17 12:23 Last Admin: 03/15/17 12:28 Dose: 1 mg Hydromorphone HCl (Dilaudid) 1 mg IVPUSH Q6H PRN PRN Reason: Pain (severe 7-10) Last Admin: 03/16/17 09:06 Dose: 1 mg Hydromorphone HCl (Dilaudid) 0.5 mg IVPUSH Q6H PRN PRN Reason: Pain (severe 7-10) Last Admin: 03/16/17 21:09 Dose: 0.5 mg Sodium Chloride (Normal Saline) 1,000 mls @ 250 mls/hr IV ASDIRECTED [facility] Last Admin: 03/14/17 20:31 Dose: 250 mls/hr Ceftriaxone Sodium 1 gm/ (Sodium Chloride) 100 mls @ 200 mls/hr IV ONETIME ONE Stop: 03/15/17 00:04 Last Admin: 03/14/17 23:55 Dose: 200 mls/hr Sodium Chloride (Normal Saline) 1,000 mls @ 125 mls/hr IV ASDIRECTED [facility] Last Admin: 03/15/17 02:44 Dose: 125 mls/hr Ceftriaxone Sodium 1 gm/ (Sodium Chloride) 100 mls @ 200 mls/hr IV Q24H [facility] Ceftriaxone Sodium 1 gm/ (Sodium Chloride) 100 mls @ 200 mls/hr IV Q24H [facility] Last Admin: 03/15/17 21:38 Dose: 200 mls/hr Sodium Chloride (Sodium Chloride 0.45%) 1,000 mls @ 125 mls/hr IV ASDIRECTED [facility] Last Admin: 03/17/17 04:55 Dose: 125 mls/hr Sodium Chloride (Sodium Chloride 0.45%) 1,000 mls @ 999 mls/hr IV ASDIRECTED [facility] Last Admin: 03/15/17 12:29 Dose: 999 mls/hr Sodium Chloride (Sodium Chloride 0.45%) 1,000 mls @ 999 mls/hr IV ONETIME ONE Stop: 03/16/17 17:16 Last Admin: 03/16/17 16:26 Dose: 999 mls/hr Levofloxacin/Dextrose 750 mg/ (Premix) 150 mls @ 100 mls/hr IV Q48H [facility] Levofloxacin/Dextrose 750 mg/ (Premix) 150 mls @ 100 mls/hr IV ONETIME ONE Stop: 03/17/17 07:47 Last Admin: 03/17/17 06:26 Dose: 100 mls/hr Sodium Chloride (Normal Saline) 500 mls @ 999 mls/hr IV .BOLUS ONE Stop: 03/17/17 07:24 Last Admin: 03/17/17 07:46 Dose: 999 mls/hr Sodium Chloride (Normal Saline) 1,000 mls @ 125 mls/hr IV ASDIRECTED [facility] Magnesium Sulfate 2 gm/ Premix 50 mls @ 25 mls/hr IV ONETIME ONE Stop: 03/17/17 08:58 Last Admin: 03/17/17 07:44 Dose: 25 mls/hr Metoprolol Tartrate 5 mg/ (Sodium Chloride) 55 mls @ 100 mls/hr IV ONETIME ONE Stop: 03/17/17 09:04 Magnesium Sulfate 2 gm/ Premix 50 mls @ 25 mls/hr IV ONETIME ONE Stop: 03/17/17 12:48 Last Admin: 03/17/17 11:21 Dose: Not Given Sodium Chloride (Sodium Chloride 0.45%) 1,000 mls @ 125 mls/hr IV ASDIRECTED [facility] Last Admin: 03/17/17 11:58 Dose: 125 mls/hr Insulin Human Regular 100 unit (/ Sodium Chloride) 100 mls @ 0.5 mls/hr IV TITRATE [facility]; 0.5 UNITS/HR PRN Reason: Protocol Last Admin: 03/17/17 12:05 Dose: 5.6 units/hr, 5.6 mls/hr Insulin Aspart (Novolog) 0 unit SUBCUT QIDACANDBED [facility] PRN Reason: Protocol Last Admin: 03/17/17 11:18 Dose: 5 units Lorazepam (Ativan) 0.25 mg PO QID PRN PRN Reason: Anxiety Last Admin: 03/16/17 04:29 Dose: 0.25 mg Lorazepam (Ativan) 1 mg IVPUSH ONETIME ONE Stop: 03/15/17 12:23 Last Admin: 03/15/17 17:23 Dose: Not Given Metoclopramide HCl (Reglan) 10 mg IVPUSH Q6H PRN PRN Reason: Nausea/Vomiting Last Admin: 03/16/17 04:21 Dose: 10 mg Metoprolol Tartrate (Lopressor) 5 mg IVPUSH Q6H PRN PRN Reason: Hypertension Last Admin: 03/15/17 18:24 Dose: 5 mg Metoprolol Tartrate (Lopressor) 25 mg PO Q12HR [facility] Last Admin: 03/17/17 09:29 Dose: Not Given Metoprolol Tartrate (Lopressor) 5 mg IVPUSH ONETIME ONE Stop: 03/17/17 08:46 Last Admin: 03/17/17 09:13 Dose: 5 mg Miscellaneous Information (Remove Patch) 1 ea TRDERM Q72H PRN PRN Reason: NAUSEA Naloxone HCl (Narcan) 0.1 mg IVPUSH ONETIME ONE Stop: 03/17/17 05:31 Last Admin: 03/17/17 05:39 Dose: 0.1 mg Naloxone HCl (Narcan) Confirm Administered Dose 0.4 mg .ROUTE .STK-MED ONE Stop: 03/17/17 05:33 Last Admin: 03/17/17 07:41 Dose: Not Given Ondansetron HCl (Zofran Odt) 4 mg PO ONETIME ONE Stop: 03/14/17 20:14 Last Admin: 03/14/17 20:17 Dose: 4 mg Ondansetron HCl (Zofran) 4 mg IVPUSH ONETIME ONE Stop: 03/14/17 21:48 Last Admin: 03/14/17 22:06 Dose: 4 mg Ondansetron HCl (Zofran Odt) 4 mg PO Q6H PRN PRN Reason: Nausea/Vomiting Last Admin: 03/16/17 15:28 Dose: 4 mg Ondansetron HCl (Zofran) 4 mg IVPUSH Q4H PRN PRN Reason: Nausea/Vomiting Last Admin: 03/15/17 08:49 Dose: 4 mg Ondansetron HCl (Zofran) 4 mg IVPUSH ONETIME ONE Stop: 03/17/17 06:58 Last Admin: 03/17/17 07:42 Dose: 4 mg Ondansetron HCl (Zofran) 4 mg IVPUSH ONETIME ONE Stop: 03/17/17 09:34 Last Admin: 03/17/17 10:08 Dose: 4 mg Pantoprazole Sodium (Protonix Iv) 40 mg IVPUSH Q12H [facility] Last Admin: 03/15/17 21:46 Dose: 40 mg Pantoprazole Sodium (Protonix) 40 mg PO BID [facility] Last Admin: 03/17/17 09:16 Dose: 40 mg Pneumococcal Polyvalent Vaccine (Pneumovax 23) 0.5 ml SUBCUT .ONCE ONE Stop: 03/16/17 09:01 Pramipexole Dihydrochloride (Mirapex) 0.5 - 1 mg PO DAILY [facility] Last Admin: 03/16/17 03:11 Dose: Not Given Pramipexole Dihydrochloride (Mirapex) 0.5 - 1 mg PO DAILY [facility] Pramipexole Dihydrochloride (Mirapex) 0.5 - 1 mg PO DAILY [facility] Last Admin: 03/17/17 09:15 Dose: 0.5 mg Rosuvastatin Calcium (Crestor) 10 mg PO DAILY [facility] Last Admin: 03/17/17 09:14 Dose: 10 mg Saccharomyces Boulardii (Florastor) 250 mg PO BID [facility] Last Admin: 03/17/17 09:16 Dose: 250 mg Scopolamine (Transderm-Scop) 1.5 mg TRDERM Q72H PRN PRN Reason: Nausea/Vomiting Sertraline HCl (Zoloft) 150 mg PO DAILY [facility] Last Admin: 03/17/17 09:16 Dose: 150 mg Sodium Bicarbonate (Sodium Bicarbonate) 325 mg PO BID [facility] Last Admin: 03/17/17 09:15 Dose: 325 mg - Exam Quality Assessment: Reports: Supplemental Oxygen, Urine Catheter, DVT Prophylaxis General: Reports: Alert, Oriented, Cooperative, No Acute Distress HEENT: Reports: Pupils Equal, Pupils Reactive, EOMI Neck: Reports: Supple, Trachea Midline, No JVD Lungs: Reports: Normal Respiratory Effort Cardiovascular: Reports: Regular Rate, Regular Rhythm GI/Abdominal Exam: Normal Bowel Sounds, Soft, No Organomegaly, No Distention, Tender (epigastric) (Female) Exam: Deferred Rectal (Female) Exam: Deferred Extremities: Normal Inspection, No Pedal Edema, Normal Capillary Refill Skin: Reports: Warm, Dry Neurological: Reports: No New Focal Deficit, Normal Speech Psy/Mental Status: Reports: Alert, Anxious *Q Meaningful Use (DIS) - VTE *Q VTE Criteria *Q: - Stroke *Q Stroke Criteria *Q: - AMI *Q AMI Criteria *Q:
== END 2017-03-17 12:50 | DRG 637 ==
LOC: JD.ED 19:26 → SUPCPDRO 19:26 → JD.MS 23:33 → UNDOADMIN 23:35 → JD.MS 23:58 → UNDOADMIN 23:58 → JD.MS 03-17 05:48 → JD.ICU 03-17 05:48 → UNDODISIN 03-17 12:50
PROVIDERS: ADMIT Internal Medicine Cardiovascular Disease; ATTEND Internal Medicine Cardiovascular Disease
DX: E10.65 Type 1 diabetes mellitus with hyperglycemia (principal); E10.10 Type 1 diabetes mellitus with ketoacidosis without coma; I21.4 Non-ST elevation (NSTEMI) myocardial infarction; N39.0 Urinary tract infection, site not specified; N30.00 Acute cystitis without hematuria; R11.0 Nausea; D72.828 Other elevated white blood cell count; N17.9 Acute kidney failure, unspecified; E10.43 Type 1 diabetes mellitus with diabetic autonomic (poly)neuropathy; K31.84 Gastroparesis; Z79.4 Long term (current) use of insulin; Z86.73 Personal history of transient ischemic attack (TIA), and cerebral infarction without residual deficits; F41.9 Anxiety disorder, unspecified; M81.0 Age-related osteoporosis without current pathological fracture; Z79.82 Long term (current) use of aspirin; Z79.899 Other long term (current) drug therapy; K80.80 Other cholelithiasis without obstruction; R41.82 Altered mental status, unspecified; I12.9 Hypertensive chronic kidney disease with stage 1 through stage 4 chronic kidney disease, or unspecified chronic kidney disease; N18.9 Chronic kidney disease, unspecified
CPT/HCPCS: 36415; 71020; 80053; 81001; 82962 ×2; 83605; 85025; 87086; A9270; J2405; J7040; 36600; 70450; 70450-26; 71010; 71010-26; 71250; 71250-26; 74020; 74020-26; 74176; 74176-26; 76700; 76700-26; 80048; 81003; 82009; 82553; 82803; 83036; 83690; 83735; 84443; 84484; 85027; 86140; 86677; 87040; 93005; 93306; 96361; 96365; 96375; 97110-GP; 97116-GP; 97162-GP; 97167-GO; 97530-GO; 99284; 99285-25; C9113; J0360; J0696; J1170; J1650; J1815-GY; J1956; J2310; J2765; J3475; J3490; J7030; Q9963